=== PATIENT | female | born 1940 | race Caucasian/White ===

== ENCOUNTER 2017-01-01 06:44 | Inpatient (IN) | payer MEDICARE, OTHER ==
[2016-12-12 12:35] LABS: APPEARANCE,URINE SLIGHTLY-CLOUDY; BILIRUBIN,URINE NEGATIVE (NEGATIVE); GLUCOSE, URINE NEGATIVE (NEGATIVE); KETONES,URINE NEGATIVE (NEGATIVE); LEUKOCYTE ESTERASE,URINE LARGE (NEGATIVE); NITRITE,URINE POSITIVE (NEGATIVE); PROTEIN,URINE NEGATIVE (NEGATIVE); URINE SPECIFIC GRAVITY 1.008; UROBILINOGEN,URINE NEGATIVE mg/dL (<2.0)
[2016-12-12 12:37] LABS: ABSOLUTE BASOPHILS # (AUTO) 0.1 10^3/uL (0.0-0.2); ABSOLUTE EOSINOPHILS # (AUTO) 0.1 10^3/uL (0.0-0.6); ABSOLUTE LYMPHOCYTES (AUTO) 2.3 10^3/uL (0.5-4.7); ABSOLUTE MONOCYTES (AUTO) 0.8 10^3/uL (0.1-1.4); ABSOLUTE NEUT (AUTO) 5.4 10^3/uL (1.7-8.2); BASOPHILS % (AUTO) 0.9 % (0-2); EOSINOPHILS % (AUTO) 1.7 % (0-6); HEMOGLOBIN 11.5 g/dL (12.0-15.5); HGB HCT DIFFERENCE -1.5; LYMPHOCYTES % (AUTO) 26.4 % (13-45); MEAN CORPUSCULAR HEMOGLOBIN 29.8 pg (27.0-33.4); MEAN CORPUSCULAR HGB CONC 32.1 g/dL (32.0-36.0); MEAN CORPUSCULAR VOLUME 93 fl (80-97); MONOCYTES % (AUTO) 9.3 % (3-13); RED BLOOD COUNT 3.87 10^6/uL (3.72-5.28); RED CELL DISTRIBUTION WIDTH 13.9 % (11.5-14.0); SEGMENTED NEUTROPHILS % (AUTO) 61.7 % (42-78); WHITE BLOOD COUNT 8.7 10^3/uL (4.0-10.5)
[2016-12-12 13:04] LABS: ANION GAP 11 (5-19); BLOOD UREA NITROGEN 19 mg/dL (7-20); CALCIUM 10.4 mg/dL (8.4-10.2); CARBON DIOXIDE 29 mmol/L (22-30); CHLORIDE 96 mmol/L (98-107); CREATININE RESULT 0.94 mg/dL (0.52-1.25); GLUCOSE 94 mg/dL (75-110); SODIUM 135.9 mmol/L (137-145)
--- NOTE | 2016-12-12 13:37 | RADIOLOGY REPORT (SQ) ---
EXAM DESCRIPTION: CHEST PA/LATERAL COMPLETED DATE/TIME: 12/12/2016 12:17 pm REASON FOR STUDY: PRE OP COMPARISON: Two-view chest 12/07/2013, AP chest 04/14/2014 EXAM PARAMETERS: NUMBER OF VIEWS: two views TECHNIQUE: Digital Frontal and Lateral radiographic views of the chest acquired. RADIATION DOSE: NA LIMITATIONS: none FINDINGS: LUNGS AND PLEURA: No opacities, masses or pneumothorax. No pleural effusion. MEDIASTINUM AND HILAR STRUCTURES: Retrocardiac hiatal hernia, moderate size. HEART AND VASCULAR STRUCTURES: Heart normal size. No evidence for failure. BONES: Osteoporotic with stable less than 25% T4 compression since 2014. A chronic appearing 50% T9 compression is present new compared to the 2014 chest films HARDWARE: None in the chest. OTHER: No other significant finding. IMPRESSION: No acute infiltrates. Retrocardiac hiatal hernia. TECHNICAL DOCUMENTATION: JOB ID: [id number] [employer]- All Rights Reserved
--- NOTE | 2016-12-12 21:32 | EKG REPORT ---
SEVERITY:- ABNORMAL ECG - SINUS OR ECTOPIC ATRIAL RHYTHM MULTIPLE VENTRICULAR PREMATURE COMPLEXES LEFT BUNDLE BRANCH BLOCK : Confirmed by: Erlin Ayala 12-Dec-2016 21:31:48
[~2017-01-01 06:44] MED LIST: BUPIVACAINE INJ/PF LIPOSOME/PF 266 MG/20 ML SDV INJ PRN; BUPIVACAINE INJ/PF LIPOSOME/PF 266 MG/20 ML SDV ONE; CEFAZOLIN INJ 1 GM VIAL IV PRN; IBUPROFEN 800 MG in NORMAL SALINE 250 ML IV PRN; LACTATED RINGERS 1000 ML IV PRN; LANSOPRAZOLE 15 MG TAB.RAP.DR PO PRN; OXYCODONE HCL SR 10 MG TABLET PO PRN; THROMBIN (BOVINE) 5000 UNIT EPITAXIS KIT ONE; THROMBIN (BOVINE) TOPICAL 20000 UNIT VIAL ONE; VANCOMYCIN HCL 1,000 MG in DEXTROSE 5%-WATER 250 ML IV PRN
[2017-01-01] MEDS ORDERED: PROPOFOL INJ 200 MG/20 ML VIAL IV ONE (07:47)
[2017-01-01] MEDS ORDERED: TRANEXAMIC ACID INJ/PF 1,000 MG/10 ML SDV IV ONE ×2 (07:48→13:00)
[2017-01-01] MEDS ORDERED: EPHEDRINE SULFATE INJ 50 MG/1 ML AMPULE ONE (07:48)
[2017-01-01] MEDS ORDERED: MIDAZOLAM 2 MG/2 ML INJ ONE (07:48)
[2017-01-01] MEDS ORDERED: FENTANYL CITRATE INJ/PF 100 MCG/2 ML AMPUL ONE (07:48)
[2017-01-01] MEDS ORDERED: DIPHENHYDRAMINE HCL 50 MG/ML VIAL IV PRN ×2 (09:02→09:50)
[2017-01-01] MEDS ORDERED: MEPERIDINE HCL/PF INJ 25 MG/1 ML DISP.SYRIN IV PRN (09:02)
[2017-01-01] MEDS ORDERED: PROMETHAZINE HCL INJ 25 MG/1 ML VIAL IV PRN ×2 (09:02)
--- NOTE | 2017-01-01 09:49 | Operative Report ---
Operative Report DATE OF SURGERY: 01/01/17 PREOPERATIVE DIAGNOSIS: Left knee arthritis OPERATION: Left knee arthroplasty SURGEON: RENA LEWIS ANESTHESIA: Spinal TISSUE REMOVED OR ALTERED: Bone to pathology ESTIMATED BLOOD LOSS: 100 PROCEDURE: Implants used: Femur: Candace triathlon #4 CR femur Tibia: 4 tibia Tibial liner: 11 mm CS insert Patella: 32 mm oval patella Procedure with the patient supine on the operating table the left the limb is prepped and draped in a sterile fashion. The limb was elevated for exsanguination and the tourniquet inflated to 280 torr. A standard midline median parapatellar approach the knee is taken. Access is gained to the femoral canal through the intercondylar notch. Intramedullary alignment instrumentation used to resect 10 mm of distal femur in 5 of valgus. Sizing guide indicated a size 4 femur. Appropriate cutting jig is then used to fashion anterior posterior and chamfer cuts. A trial reduction femurs performed and this is judged to be adequate. Attention was next turned to the tibia. Using an extra medullary alignment system 9 millimeters was resected off the medial tibial plateau. This is sized to a size 4 tibia. A trial reduction was now performed with a for femur and a for tibia using a 11 millimeters spacer. It is full extension and central patellofemoral tracking. The articular surface the patella was next resected using an oscillating saw. All trial implants were removed. Polymethylmethacrylate is mixed and used to cement the above implants in place. On adequate curing the cement excess cement was removed the tourniquet was deflated hemostasis obtained the wound is then closed in layers using interrupted Vicryl followed by pino. A sterile compressive dressing was applied and the patient returned to recovery room in satisfactory condition.
[2017-01-01] MEDS ORDERED: ZOLPIDEM TARTRATE 5 MG TABLET PO PRN (09:50)
[2017-01-01] MEDS ORDERED: ONDANSETRON 4 MG TAB.RAPDIS PO PRN (09:50)
[2017-01-01] MEDS ORDERED: RINGERS SOLUTION,LACTATED 1,000 ML IV PRN (09:50)
[2017-01-01] MEDS ORDERED: ONDANSETRON HCL INJ/PF 4 MG/2 ML SDV IV PRN (09:50)
[2017-01-01] MEDS ORDERED: MAG HYDROX/AL HYDROX/SIMETH SUSP 30 ML UDCUP PO PRN (09:50)
[2017-01-01] MEDS ORDERED: ACETAMINOPHEN 325 MG TABLET PO PRN (09:50)
[2017-01-01] MEDS ORDERED: DULOXETINE HCL PO SCH (10:00)
[2017-01-01] MEDS ORDERED: SULFAMETHOXAZOLE/TRIMETHOPRIM 800-160 MG TABLET PO SCH (10:00)
[2017-01-01] MEDS ORDERED: (PENDING PHARMACY ID) (Multivitamin [Multivitamins] 1 CAP) PO SCH (10:00)
--- NOTE | 2017-01-01 10:47 | RADIOLOGY REPORT (SQ) ---
EXAM DESCRIPTION: KNEE LEFT 2 VIEWS COMPLETED DATE/TIME: 01/01/2017 10:26 am REASON FOR STUDY: Post OP -Long Cassette in PACU M17.12 UNILATERAL PRIMARY OSTEOARTHRITIS, LEFT KNE E COMPARISON: None. NUMBER OF VIEWS: 2 view(s). TECHNIQUE: Digital radiographic images of the left knee post-procedure. LIMITATIONS: None. FINDINGS: BONES: No worrisome or unexpected findings post-procedure. DEVICE: Left knee arthroplasty SOFT TISSUES: No worrisome findings. Expected postoperative soft tissue changes. IMPRESSION: POSTOPERATIVE LEFT KNEE. TECHNICAL DOCUMENTATION: JOB ID: [id number] [employer]- All Rights Reserved
[2017-01-01] MEDS: OXYCODONE HCL IR 5 MG TABLET PO PRN ×2 (13:55→23:49)
[2017-01-01] MEDS ORDERED: DONEPEZIL HCL 5 MG TABLET PO ONE (14:00)
[2017-01-01] MEDS ORDERED: DULOXETINE HCL 30 MG CAPSULE.DR PO ONE (14:00)
[2017-01-01] MEDS ORDERED: HYDROMORPHONE HCL INJ/PF 2 MG/ML AMPULE IV PRN (16:02)
[2017-01-01] MEDS: IBUPROFEN 800 MG in NORMAL SALINE 250 ML IV SCH (17:27)
[2017-01-01] MEDS: SULFAMETHOXAZOLE/TRIMETHOPRIM 800-160 MG TABLET PO SCH (17:28)
[2017-01-01] MEDS: SENNOSIDES/DOCUSATE 8.6-50 MG 1 EACH TABLET PO SCH (17:28)
[2017-01-01] MEDS: ATORVASTATIN CALCIUM 40 MG TABLET PO SCH (21:22)
[2017-01-01] MEDS: TRAZODONE HCL 50 MG TABLET PO SCH (21:22)
[2017-01-01] MEDS: RIVAROXABAN 10 MG TABLET PO SCH (21:22)
[2017-01-01] MEDS: TOLTERODINE TARTRATE 1 MG TABLET PO SCH (21:23)
[2017-01-01] MEDS ORDERED: VANCOMYCIN HCL 1,000 MG in DEXTROSE 5%-WATER 250 ML IV ONE (21:50)
[2017-01-01] MEDS ORDERED: (PENDING PHARMACY ID) (Trazodone Hcl [Desyrel] 300 MG) PO SCH (22:00)
[2017-01-01] MEDS ORDERED: ATORVASTATIN CALCIUM 20 MG TABLET PO SCH (22:00)
[2017-01-01] MEDS ORDERED: SOLIFENACIN SUCCINATE PO SCH (22:00)
[2017-01-01] MEDS ORDERED: (PENDING PHARMACY ID) (Donepezil Hcl [Aricept] 10 MG) PO SCH (22:00)
[2017-01-02] MEDS: IBUPROFEN 800 MG in NORMAL SALINE 250 ML IV SCH ×3 (01:22→17:29)
[2017-01-02] MEDS: LANSOPRAZOLE 30 MG TAB.RAP.DR PO SCH (05:21)
[2017-01-02 06:15] LABS: HEMATOCRIT 26.9 % (36.0-47.0); HEMOGLOBIN 9.2 g/dL (12.0-15.5); HGB HCT DIFFERENCE 0.7; MEAN CORPUSCULAR HEMOGLOBIN 30.8 pg (27.0-33.4); MEAN CORPUSCULAR HGB CONC 34.1 g/dL (32.0-36.0); MEAN CORPUSCULAR VOLUME 90 fl (80-97); RED BLOOD COUNT 2.97 10^6/uL (3.72-5.28); RED CELL DISTRIBUTION WIDTH 13.9 % (11.5-14.0); WHITE BLOOD COUNT 7.9 10^3/uL (4.0-10.5)
[2017-01-02 06:29] LABS: ANION GAP 6 (5-19); BLOOD UREA NITROGEN 20 mg/dL (7-20); CALCIUM 8.8 mg/dL (8.4-10.2); CARBON DIOXIDE 25 mmol/L (22-30); CHLORIDE 99 mmol/L (98-107); GLUCOSE 113 mg/dL (75-110); POTASSIUM 4.7 mmol/L (3.6-5.0); SODIUM 129.5 mmol/L (137-145)
[2017-01-02] MEDS: OXYCODONE HCL IR 5 MG TABLET PO PRN ×2 (06:38→21:15)
--- NOTE | 2017-01-02 06:50 | PDOC PROGRESS REPORT ---
Subjective Progress Note for:: 01/02/17 Subjective:: Patient without specific complaints this morning. She states "I do not want any of those narcotics" Physical Exam Vital Signs: Temp Pulse Resp BP Pulse Ox 36.6 C 76 16 139/51 H 97 01/01/17 23:53 01/01/17 23:53 01/01/17 23:53 01/01/17 23:53 01/01/17 16:03 Intake & Output 12/31/16 01/01/17 01/02/17 06:59 06:59 06:59 Intake Total 2840 Output Total 2575 Balance 265 Weight 63.5 kg General appearance: PRESENT: mild distress Head exam: PRESENT: normocephalic Respiratory exam: PRESENT: unlabored Cardiovascular exam: PRESENT: RRR Pulses: PRESENT: +1 pedal pulses bilateral GI/Abdominal exam: PRESENT: soft Rectal exam: PRESENT: deferred Extremities exam: PRESENT: other - Left lower extremity dressing is clean dry and intact. Distal neurovascular examination is intact. Neurological exam: PRESENT: alert, awake, oriented to person, oriented to place , oriented to time, oriented to situation, CN II-XII grossly intact. ABSENT: motor sensory deficit Psychiatric exam: PRESENT: appropriate affect, normal mood. ABSENT: homicidal ideation, suicidal ideation Skin exam: PRESENT: dry, intact, warm. ABSENT: cyanosis, rash Results Laboratory Results: 01/02/17 05:37 01/02/17 05:37 01/01/17 01/02/17 01/02/17 07:45 05:37 05:37 WBC 7.9 RBC 2.97 L Hgb 9.2 L Hct 26.9 L MCV 90 MCH 30.8 MCHC 34.1 RDW 13.9 Plt Count 224 Sodium 129.5 L Potassium 4.7 Chloride 99 Carbon Dioxide 25 Anion Gap 6 BUN 20 Creatinine 0.90 Est GFR ( Amer) > 60 Est GFR (Non-Af Amer) > 60 Glucose 113 H Calcium 8.8 Blood Type O POSITIVE Antibody Screen NEGATIVE Impressions: Chest X-Ray 12/12/16 12:07 IMPRESSION: No acute infiltrates. Retrocardiac hiatal hernia. Knee X-Ray 01/01/17 09:51 IMPRESSION: POSTOPERATIVE LEFT KNEE. Status: Imported from PACS Assessment & Plan - Diagnosis (1) Osteoarthritis of knee Qualifiers: Osteoarthritis type: primary Laterality: left Qualified Code(s): M17.12 - Unilateral primary osteoarthritis, left knee Is this a current diagnosis for this admission?: Yes Plan: 76-year-old female postop day 1 from left knee arthroplasty. Overall the patient is doing well. She made minimal progress with physical therapy yesterday. Anticipate discharge home tomorrow pending independent ambulation. - Time Time Spent with patient: 15-24 minutes Anticipated discharge: Home with Homehealth Within: within 24 hours
[2017-01-02] MEDS: SULFAMETHOXAZOLE/TRIMETHOPRIM 800-160 MG TABLET PO SCH ×2 (10:20→17:32)
[2017-01-02] MEDS: TOLTERODINE TARTRATE 1 MG TABLET PO SCH ×2 (10:20→21:11)
[2017-01-02] MEDS: DULOXETINE HCL 30 MG CAPSULE.DR PO SCH (10:21)
[2017-01-02] MEDS: PRENATAL VITAMIN W-O CA NO5/FE FUMARATE/FA CAPSULE PO SCH (10:21)
[2017-01-02] MEDS: DONEPEZIL HCL 5 MG TABLET PO SCH (10:21)
[2017-01-02] MEDS: SENNOSIDES/DOCUSATE 8.6-50 MG 1 EACH TABLET PO SCH ×2 (10:21→17:32)
[2017-01-02] MEDS: CALCIUM CARBONATE 500 MG TABLET PO SCH (10:21)
[2017-01-02] MEDS: LISINOPRIL 10 MG TABLET PO SCH (10:21)
[2017-01-02] MEDS: TRAZODONE HCL 50 MG TABLET PO SCH (21:11)
[2017-01-02] MEDS: RIVAROXABAN 10 MG TABLET PO SCH (21:11)
[2017-01-02] MEDS: ATORVASTATIN CALCIUM 40 MG TABLET PO SCH (21:11)
[2017-01-03] MEDS: IBUPROFEN 800 MG in NORMAL SALINE 250 ML IV SCH ×2 (03:46→11:27)
[2017-01-03] MEDS: LANSOPRAZOLE 30 MG TAB.RAP.DR PO SCH (05:59)
[2017-01-03 06:32] LABS: HEMATOCRIT 26.9 % (36.0-47.0); HEMOGLOBIN 9.4 g/dL (12.0-15.5); HGB HCT DIFFERENCE 1.3; MEAN CORPUSCULAR HEMOGLOBIN 31.2 pg (27.0-33.4); MEAN CORPUSCULAR HGB CONC 35.1 g/dL (32.0-36.0); MEAN CORPUSCULAR VOLUME 89 fl (80-97); RED BLOOD COUNT 3.02 10^6/uL (3.72-5.28); RED CELL DISTRIBUTION WIDTH 13.6 % (11.5-14.0); WHITE BLOOD COUNT 9.7 10^3/uL (4.0-10.5)
[2017-01-03] MEDS: LISINOPRIL 10 MG TABLET PO SCH (08:24)
--- NOTE | 2017-01-03 08:27 | PDOC DISCHARGE SUMMARY ---
General - Admit/Disc Date/PCP Admission Date/Primary Care Provider: 01/01/17 06:44 GAURANG CUELLAR Discharge Date: 01/03/17 - Discharge Diagnosis (1) Osteoarthritis of knee Is this a current diagnosis for this admission?: Yes - Additional Information Resuscitation Status: Full Code Discharge Diet: As Tolerated, Regular Discharge Activity: Activity As Tolerated, No Driving, Walk Frequently Home Medications: Donepezil HCl [Aricept] 10 mg PO QHS 12/15/13 Lisinopril 5 mg PO QAM 12/15/13 Trazodone HCl [Desyrel] 300 mg PO QHS #0 04/19/14 Atorvastatin Calcium [Lipitor] 40 mg PO QHS 12/18/16 Calcium Carbonate [Calcium] 1 tab PO DAILY 12/18/16 Duloxetine HCl [Cymbalta] 1 cap PO DAILY 12/18/16 Meloxicam [Mobic 7.5 mg Tablet] 1 tab PO DAILY 12/18/16 Multivitamin [Multivitamins] 1 cap PO DAILY 12/18/16 Solifenacin Succinate [Vesicare] 1 tab PO QHS 12/18/16 Teriparatide [Forteo] 20 meq SQ DAILY 12/18/16 Sulfamethoxazole/Trimethoprim [Bactrim Ds Tablet] 1 each PO BID 01/01/17 History of Present Illness History of Present Illness: TAMMY VIEYRA is a 76 year old female with left knee osteoarthritis admitted for a total left knee arthroplasty. Hospital Course Hospital Course: 76-year-old white female admitted through the OR and underwent left total knee arthroplasty. She was returned to the floor and seen by physical therapy for weightbearing and ambulation as tolerated. She made progress with physical therapy ambulating independently and she will be discharged to her home with home health nursing, home PT, walker, and a bedside commode. Physical Exam Vital Signs: Temp Pulse Resp BP Pulse Ox 37.9 C 108 H 15 128/48 H 94 01/03/17 00:06 01/03/17 00:06 01/03/17 00:06 01/03/17 00:06 01/03/17 00:06 Intake & Output 01/02/17 01/03/17 01/04/17 06:59 06:59 06:59 Intake Total 3790 970 Output Total 3525 Balance 265 970 Weight 63.5 kg General appearance: PRESENT: no acute distress, well-developed, well-nourished Head exam: PRESENT: atraumatic, normocephalic Pulses: PRESENT: normal dorsalis pedis pul, +2 pedal pulses bilateral Vascular exam: PRESENT: normal capillary refill Additional comments: Left lower extremity is in postop compression dressing and there is brisk capillary refill, and appropriate passive and active range of motion for this stage in the healing process. Her sensory and motor function is intact. Patient's compression dressing was removed this morning and OpSite dressing was clean dry and intact. Musculoskeletal exam: PRESENT: ambulatory Neurological exam: PRESENT: alert, awake, oriented to person, oriented to place , oriented to time, oriented to situation, CN II-XII grossly intact. ABSENT: motor sensory deficit Psychiatric exam: PRESENT: appropriate affect, normal mood. ABSENT: homicidal ideation, suicidal ideation Skin exam: PRESENT: dry, intact, warm. ABSENT: cyanosis, rash Results Laboratory Results: 01/03/17 05:56 01/02/17 05:37 01/03/17 05:56 WBC 9.7 RBC 3.02 L Hgb 9.4 L Hct 26.9 L MCV 89 MCH 31.2 MCHC 35.1 RDW 13.6 Plt Count 242 Impressions: Chest X-Ray 12/12/16 12:07 IMPRESSION: No acute infiltrates. Retrocardiac hiatal hernia. Knee X-Ray 01/01/17 09:51 IMPRESSION: POSTOPERATIVE LEFT KNEE. Plan Discharge Plan: 76-year-old white female status post left total knee arthroplasty will be discharged to home today with home health nursing, home PT, walker, bedside commode and the visiting nurse service will change the wound dressing postop day 7. Patient will then follow-up with Dr. Lal at [facility] for surgery 2 weeks postoperatively for staple removal.
[2017-01-03] MEDS: CALCIUM CARBONATE 500 MG TABLET PO SCH (09:28)
[2017-01-03] MEDS: DULOXETINE HCL 30 MG CAPSULE.DR PO SCH (09:28)
[2017-01-03] MEDS: SENNOSIDES/DOCUSATE 8.6-50 MG 1 EACH TABLET PO SCH (09:28)
[2017-01-03] MEDS: DONEPEZIL HCL 5 MG TABLET PO SCH (09:28)
[2017-01-03] MEDS: TOLTERODINE TARTRATE 1 MG TABLET PO SCH (09:29)
[2017-01-03] MEDS: PRENATAL VITAMIN W-O CA NO5/FE FUMARATE/FA CAPSULE PO SCH (09:29)
[2017-01-03] MEDS: SULFAMETHOXAZOLE/TRIMETHOPRIM 800-160 MG TABLET PO SCH (09:29)
[2017-01-03 11:46] VITALS: BP 139/51
== END 2017-01-03 12:44 | disposition home health service (06) | DRG 470 ==
LOC: INOR 06:44 → 4S 11:24
PROVIDERS: ADMIT Orthopaedic Surgery; ATTEND Orthopaedic Surgery
PROC: 0SRD0J9 Replacement of Left Knee Joint with Synthetic Substitute, Cemented, Open Approach (ICD-10-PCS; principal; 2017-01-01 08:45)
DX: M17.12 Unilateral primary osteoarthritis, left knee (principal); M25.562 Pain in left knee; E78.5 Hyperlipidemia, unspecified; I10 Essential (primary) hypertension; M81.0 Age-related osteoporosis without current pathological fracture; Z96.651 Presence of right artificial knee joint; Z96.642 Presence of left artificial hip joint
CPT/HCPCS: 01402; 36415; 71020; 80048; 81001; 85025; 85027; 86850; 86900; 86901; 88305; 88311; 93005; 93010; 94799; C9290; G8978-GP; G8979-GP; G8987-GO; G8988-GO; J0690; J1170; J1741; J2250; J2405; J2704; J3010; J3370; J3490; J7050; J7060